=== PATIENT | male | born 1985 | race Two or more races ===

== ENCOUNTER 2022-08-20 00:41 | Emergency (ER) | payer BC ==
[~2022-08-20] VITALS: Ht 175.3 cm; Wt 86.2 kg
--- NOTE | 2022-08-20 00:49 | NUR ---
Dr Batres at bedside MSE in progress
[2022-08-20] MEDS ORDERED: SODIUM BICARBONATE 4.2 % (NEUT) 5 ML VIAL ONE (00:55)
[2022-08-20] MEDS ORDERED: LIDOCAINE 1%-EPI 1:100,000 20 ML VIAL ONE (00:55)
[2022-08-20] MEDS ORDERED: TDAP DIPH,PERTUSS,TET VAC/PF 0.5 ML DISP.SYRIN IM ONE ×2 (00:56→01:00)
[2022-08-20] MEDS ORDERED: SODIUM BICARBONATE 4.2 % (NEUT) 5 ML VIAL TP ONE (01:00)
[2022-08-20] MEDS ORDERED: LIDOCAINE 1%-EPI 1:100,000 20 ML VIAL IJ ONE (01:00)
[2022-08-20 01:22] VITALS: BP 133/71
--- NOTE | 2022-08-20 01:22 | NUR ---
Patient discharged to home in stable condition. Written and verbal after care instructions given. Patient verbalizes understanding of instructions. Stressed follow up or return to ER for worsening s/s. Patient is a/ox4, NAD noted. patient is ambulatory with steady gait, accompanied by his SO
== END 2022-08-20 01:23 | disposition home or self-care (01) ==
LOC: ER 00:42
DX: S01.01XA Laceration without foreign body of scalp, initial encounter (principal); W01.0XXA Fall on same level from slipping, tripping and stumbling without subsequent striking against object, initial encounter; Y92.89 Other specified places as the place of occurrence of the external cause; S09.90XA Unspecified injury of head, initial encounter; R03.0 Elevated blood-pressure reading, without diagnosis of hypertension
CPT/HCPCS: 99283; 90715; 90471; 12002; J3490 ×2; A4663